=== PATIENT | male | born 1990 | race American Indian/Alaskan Native ===

== ENCOUNTER 2019-12-18 14:07 | Emergency (ER) | payer SELFPAY ==
[2019-12-18 14:24] VITALS: BP 126/62
--- NOTE | 2019-12-18 15:58 | Emergency Department Report ---
Chief Complaint: Pain General Stated Complaint: BODY HURTING, COLD WEAK Time Seen by Provider: 12/18/19 15:47 - HPI History of Present Illness: 29 y o male presents to ED cc of body aches from continued physical activities such as lifting and bending Pt also states he was taking opoids and last dose wa 3 weeks ago denies injury, fall or any trauma, f/c/n/v/chest pain - ROS Review of Systems: All other systems reviewed and negativ - Exam Vital Signs: Vital Signs 12/18/19 14:19 Temperature 97.7 F Pulse Rate 56 L Respiratory 20 Rate Blood Pressure 126/62 O2 Sat by Pulse 100 Oximetry MSE screening note: Focused history and physical exam performed. Due to findings the following was ordered: ED Medical Decision Making - Medical Decision Making 29-year-old male presents for a nonmedical emergency. Discussed with patient to hydrate. Discussed follow-up with primary care keysha roblero. Vital Signs are normal patient is no acute distress ED Disposition for MSE Clinical Impression: Myalgia Disposition: MED SCREENING EXAM-LEFT Is pt being admited?: No Does the pt Need Aspirin: No Condition: Stable Instructions: Musculoskeletal Pain (ED) Additional Instructions: Make sure to follow up with the primary care physician as discussed. Take your motrin otc for pain 800 mg = 4 tablets every 8 hours If you have any worsening symptoms or develop new symptoms please return to ED immediately. Referrals: [facility] [Outside] - 3-5 Days [facility] [Outside] - 3-5 Days Forms: Work/School Release Form(ED) Time of Disposition: 16:13
== END 2019-12-18 17:35 | disposition left against medical advice (07) ==
LOC: ED 14:07
DX: M79.10 Myalgia, unspecified site (principal)
CPT/HCPCS: 99281